=== PATIENT | female | born 1975 | race Caucasian/White ===

== ENCOUNTER 2020-05-22 03:09 | Emergency (ER) | payer SELFPAY ==
[~2020-05-22] VITALS: Ht 172.7 cm; Wt 72.7 kg
[2020-05-22 03:19] VITALS: BP 139/66
== END 2020-05-22 04:00 | disposition left against medical advice (07) ==
LOC: EMS 03:09
DX: M54.2 Cervicalgia (principal); Z53.21 Procedure and treatment not carried out due to patient leaving prior to being seen by health care provider